=== PATIENT | female | born 1995 | race Caucasian/White ===

== ENCOUNTER 2020-10-25 13:46 | Emergency (ER) | payer BC ==
[~2020-10-25] VITALS: Ht 170.2 cm; Wt 50.0 kg
[2020-10-25] MEDS ORDERED: KEFLEX500 M1 PO ×3 (15:24→15:35)
[2020-10-25 15:35] VITALS: BP 104/66
== END 2020-10-25 15:35 | disposition home or self-care (01) | DRG 605 ==
LOC: ED 13:46
PROC: 0HQLXZZ Repair Left Lower Leg Skin, External Approach (ICD-10-PCS; principal; 2020-10-25)
DX: S81.812A Laceration without foreign body, left lower leg, initial encounter (principal); V86.56XA Driver of dirt bike or motor/cross bike injured in nontraffic accident, initial encounter; Y93.I9 Activity, other involving external motion; Y92.833 Campsite as the place of occurrence of the external cause